=== PATIENT | female | born 1995 | race Hispanic/Latino ===

== ENCOUNTER 2018-05-24 19:11 | Emergency (ER) | payer OTHER ==
[~2018-05-24] VITALS: Ht 165.1 cm; Wt 113.4 kg
--- NOTE | 2018-05-24 19:22 | ED ANKLE/FOOT INJURY COMPLAINT ---
History of Present Illness General Chief Complaint: Foot or Ankle Injury Stated Complaint: PT TRIP OVER HER OWN FEET THE LT ANKLE IS SWOLLEN Source: patient Exam Limitations: no limitations Vital Signs & Intake/Output Vital Signs & Intake/Output Vital Signs Date Time Temp Pulse Resp B/P B/P Pulse O2 O2 Flow FiO2 Mean Ox Delivery Rate 05/24 1916 97.0 105 18 145/97 98 Room Air Allergies Coded Allergies: No Known Allergies (05/24/18) Triage Nurses Notes Reviewed? yes Occurred: just prior to arrival Duration: day(s): (), constant, continues in ED Timing: single episode today Severity: mild, moderate Severity Numbers: 6 Pain/Injury Location: Left: Ankle. Method of Injury: twisted : No Patient currently breastfeeds: No HPI: 23-year-old female with no medical history presents for evaluation of left ankle pain. Patient reports that 4 days ago she rolled her ankle but did not fall. She reports pain to the lateral aspect of her foot and ankle and soft tissue swelling. The pain is worse with movement but she is able to walk. She has been taking ibuprofen with only minimal improvement. No numbness or tingling no knee pain or any other injuries. THERE WAS NO HEAD STRIKE./ Past History Travel History Traveled to [place] past 21 day No Medical History Any Pertinent Medical History? see below for history Neurological: NONE EENT: NONE Cardiovascular: NONE Respiratory: NONE Gastrointestinal: NONE Hepatic: NONE Renal: NONE Musculoskeletal: NONE Psychiatric: NONE Endocrine: NONE Surgical History Surgical History: non-contributory Psychosocial History What is your primary language Greenlandic Tobacco Use: Never used Family History Hx Contributory? No Review of Systems Review of Systems Constitutional: Reports: no symptoms. EENTM: Reports: no symptoms. Respiratory: Reports: no symptoms. Cardiovascular: Reports: no symptoms. GI: Reports: no symptoms. Genitourinary: Reports: no symptoms. Musculoskeletal: Reports: joint pain, joint swelling. Skin: Reports: no symptoms. Neurological/Psychological: Reports: no symptoms. Hematologic/Endocrine: Reports: no symptoms. Immunologic/Allergic: Reports: no symptoms. All Other Systems: Reviewed and Negative Physical Exam Physical Exam General Appearance: well developed/nourished, no apparent distress, alert, awake , obese Head: atraumatic, normal appearance Eyes: Bilateral: normal appearance, EOMI. Ears, Nose, Throat: hearing grossly normal Neck: normal inspection, supple, full range of motion Cardiovascular/Respiratory: no respiratory distress Leg/Knee/Thigh Left: normal range of motion, normal inspection Leg/Knee/Thigh Right: normal range of motion, normal inspection Ankle Left: swelling, tenderness, limited range of motion, THERE IS PAIN TO PALPATION AND SWELLING TO THE LATERAL MALLELOUS. NO BRUISING. ROM IS LIMITED DUE TO PAIN. N/V SUPPLY INTACT Ankle Right: normal inspection, normal range of motion Foot Left: normal inspection, normal range of motion, soft tissue tenderness, swelling, THERE IS TENDERNESS AND SWELLINTG TO THE LATERAL APSECT OF THE FOOT Foot Right: normal inspection, normal range of motion Neuro/Vascular: normal motor function, normal sensation Tendon: normal tendon function Skin: intact, normal color, warm/dry Progress Differential Diagnosis: cellulitis, septic arthritis, fracture, dislocation, sprain, contusion Plan of Care: Orders Procedure Date/time Status URINE 05/24 1914 Complete Laboratory Tests 05/24/181937: Urine Test NEGATIVE Patient is here with pain to the lateral foot and ankle. X-rays were obtained. Patient was medicated with Tylenol. X-rays are negative for fracture. Advised rest ice elevation compression Ryan wrap applied. Tylenol ibuprofen for pain discussed return precaution patient agrees the plan Diagnostic Imaging: Viewed by Me: Radiology Read. Discussed w/RAD: Radiology Read. Radiology Impression: PATIENT: RAMY RODRIGUEZ PRESENT AGE: 23 PATIENT ACCOUNT NO: [id number] : 97 LOCATION: [facility] ([place]) ORDERING PHYSICIAN: Claus BORGES SERVICE DATE: 05/24/18 EXAM TYPE: RAD - XRY- ANKLE 3 OR MORE VIEWS L; XRY-FOOT COMPLETE, LEFT EXAMINATION: LEFT FOOT AND ANKLE 6 VIEWS CLINICAL INFORMATION: Pain following inversion injury. COMPARISON: None. TECHNIQUE: AP, lateral, oblique views of the left foot were obtained in addition to AP, lateral and oblique views of the left ankle. FINDINGS: There are no fractures or dislocations. There is soft tissue swelling overlying the lateral malleolus. No ankle joint effusion is identified. IMPRESSION: Soft tissue swelling without fracture or dislocation. DICTATED BY: Stephen Cleaning MD DATE/TIME DICTATED:05/24/182039 FURNACE MAINTENANCE:POWER DATE/TIME TRANSCRIBED:09/27/18 / 2040 CONFIDENTIAL, DO NOT COPY WITHOUT APPROPRIATE AUTHORIZATION. <Electronically signed in Other Vendor System> SIGNED BY: Stephen Cleaning MD 05/24/182043 Departure Departure Disposition: HOME OR SELF CARE Condition: Stable Clinical Impression Primary Impression: Ankle sprain Qualifiers: Encounter type: initial encounter Involved ligament of ankle: unspecified ligament Laterality: left Qualified Code: S93.402A - Sprain of unspecified ligament of left ankle, initial encounter Referrals: Tena KWON,Lolis Og Additional Instructions: Rest, keep your foot elevated. Tylenol ibuprofen for pain. Wear Ryan wrap. Make a follow-up with your primary care doctor to review all results of today's visit monitor your symptoms return with any concerns. Departure Forms: Customer Survey General Discharge Information Prescriptions: Current Visit Scripts Ibuprofen 1 TAB PO TID PRN pain #30 TAB
--- NOTE | 2018-05-24 20:44 | RADIOLOGY REPORT ---
EXAMINATION: LEFT FOOT AND ANKLE 6 VIEWS CLINICAL INFORMATION: Pain following inversion injury. COMPARISON: None. TECHNIQUE: AP, lateral, oblique views of the left foot were obtained in addition to AP, lateral and oblique views of the left ankle. FINDINGS: There are no fractures or dislocations. There is soft tissue swelling overlying the lateral malleolus. No ankle joint effusion is identified. IMPRESSION: Soft tissue swelling without fracture or dislocation.
[2018-05-24] MEDS ORDERED: IBUPROFEN800 M1 PO (21:08)
[2018-05-24 21:09] VITALS: BP 132/78
== END 2018-05-24 21:12 ==
LOC: ERH 19:11
DX: S93.402A Sprain of unspecified ligament of left ankle, initial encounter (principal); X50.9XXA Other and unspecified overexertion or strenuous movements or postures, initial encounter; Y93.9 Activity, unspecified; Y92.9 Unspecified place or not applicable
CPT/HCPCS: 73610-LT; 73630-LT; 81025